=== PATIENT | female | born 1980 | race Caucasian/White ===

== ENCOUNTER → 2016-10-25 | Outpatient (CLI) | payer OTHER ==
[~2016-10-25] MED LIST: NAPROXEN PO; OXAPROZIN600 MG PO; VICODIN 5/500 T1 TAB PO
--- NOTE | ~2016-10-25 | CR151 ---
[facility] A Service of [facility] RADIOLOGY TEXT RESULTS PATIENT: YVONNE BLAKE LOCATION: [facility] : 76 UNIT #: [id number] AGE: [address]: LUIS PELAYO APRN SEX: F ORDER DR: [id number] [facility] [address] [place] [address]. [place], [place] [address] [id number] O MR#: [id number] Acc #: [id number] NAME: YVONNE BLAKE : 1980 SEX: F STUDY DATE/TIME: 10/25/2016 13:29 UNIT: [facility] ROOM: STUDY DESCRIPTION: CR Hip Min 2 Views Rt Attending Physician: Luis Pelayo A.P.R.N. Referring Physician: Luis Pelayo A.P.R.N. Ordering Physician: Luis Pelayo A.P.R.N. Primary Care Physician: Javier Metcalf M.D. MEDICAL IMAGING REPORT This report is preliminary unless electronic signature is present EXAM Right hip, 2 views. DATE OF EXAM 10/25/2016 HISTORY Right hip pain for 6 months. Right hip osteoarthritis, no known injury. FINDINGS AP and oblique examination of the hip shows adequate mineralization of the bones and a normal anatomic relationship of the femoral head with the acetabulum. There are no hypertrophic changes, fractures, dislocation, or joint capsular distension. No radiopaque foreign body is present about the soft tissues of the hip. IMPRESSION Normal right hip. Dictated by... Naman Lal M.D. THIS IS AN ELECTRONICALLY VERIFIED REPORT Naman Lal M.D. at 10/26/2016 8:12 AM STACY/estuardo TD: 10/25/2016 20:17 JOB #: [id number] [facility] A Service [facility] RADIOLOGY TEXT RESULTS PATIENT: YVONNE BLAKE LOCATION: [facility] : 76 UNIT #: [id number] AGE: [address]: LUIS PELAYO APRN SEX: F ORDER DR: MEDICAL IMAGING REPORT Page 1 of 1 COPY
--- NOTE | ~2016-10-25 | CR170 ---
[facility] A Service of [facility] & [facility] RADIOLOGY TEXT RESULTS PATIENT: YVONNE BLAKE LOCATION: [facility] : 76 UNIT #: [id number] AGE: [address]: LUIS PELAYO APRN SEX: F ORDER DR: [id number] [facility] [address] [place], [place] [address] [id number] O MR#: [id number] Acc #: [id number] NAME: YVONNE BLAKE : 1980 SEX: F STUDY DATE/TIME: 10/25/2016 13:30 UNIT: [facility] ROOM: STUDY DESCRIPTION: CR Knee 2 Views Rt Attending Physician: Luis Pelayo A.P.R.N. Referring Physician: Luis Pelayo A.P.R.N. Ordering Physician: Luis Pelayo A.P.R.N. Primary Care Physician: Javier Metcalf M.D. MEDICAL IMAGING REPORT This report is preliminary unless electronic signature is present EXAM Right knee 2 views 10/25/2016 HISTORY Right knee pain for 5 years, osteoarthritis right knee. No known injury. FINDINGS 2 views of the right knee demonstrate no fracture. There is degenerative change with narrowing of the medial and lateral compartments of the knee, more prominent on the lateral side. Osteophytes extend off the femoral condyles, the tibial plateau and the posterior aspect of the patella. The bones are normally mineralized. There is no joint effusion. IMPRESSION Degenerative change about the right knee. No acute abnormality. Dictated by... Naman Lal M.D. THIS IS AN ELECTRONICALLY VERIFIED REPORT Naman Lal M.D. at 10/26/2016 8:12 AM KRT/pcl TD: 10/25/2016 21:30 JOB #: [id number] MEDICAL IMAGING REPORT Page 1 of 1 COPY
--- NOTE | ~2016-10-25 | CR181 ---
[facility] A Service of [facility] & [facility] RADIOLOGY TEXT RESULTS PATIENT: YVONNE BLAKE LOCATION: [facility] : 76 UNIT #: [id number] AGE: [address]: LUIS PELAYO APRN SEX: F ORDER DR: [id number] [facility] [address] [place] [address]. [place], [place] [address] [id number] O MR#: [id number] Acc #: [id number] NAME: YVONNE BLAKE : 1980 SEX: F STUDY DATE/TIME: 10/25/2016 13:29 UNIT: [facility] ROOM: STUDY DESCRIPTION: CR Lumbar Spine 2 or 3 Views Attending Physician: Luis Pelayo A.P.R.N. Referring Physician: Luis Pelayo A.P.R.N. Ordering Physician: Luis Pelayo A.P.R.N. Primary Care Physician: Javeir Metcalf M.D. MEDICAL IMAGING REPORT This report is preliminary unless electronic signature is present EXAM Lumbar spine 3 views, 10/25/2016 HISTORY Low back pain for 5 years and bilateral hip pain for 6 months. No known injury. FINDINGS 3 views of the lumbar spine demonstrate no fracture. The posterior vertebral body line is intact and there is no anterolisthesis or retrolisthesis. There is degenerative change with mild disc space narrowing at L4-5 and L5-S1. Small anterior osteophytes are seen from L3 through L5 and there is mild degenerative change involving the articular facets. IMPRESSION Degenerative change in the lumbar spine. No acute abnormality. Dictated by... Naman Lal M.D. THIS IS AN ELECTRONICALLY VERIFIED REPORT Naman Lal M.D. at 10/26/2016 8:11 AM STACY/ghazal TD: 10/25/2016 20:23 JOB #: [id number] MEDICAL IMAGING REPORT Page 1 of 1 COPY
--- NOTE | ~2016-10-25 | CR150 ---
[facility] A Service of [facility] & [facility] RADIOLOGY TEXT RESULTS PATIENT: YVONNE BLAKE LOCATION: [facility] : 76 UNIT #: [id number] AGE: [address]: LUIS PELAYO APRN SEX: F ORDER DR: [id number] [facility] [address] [place], [place] [address] [id number] O MR#: [id number] Acc #: [id number] NAME: YVONNE BLAKE : 1980 SEX: F STUDY DATE/TIME: 10/25/2016 13:28 UNIT: [facility] ROOM: STUDY DESCRIPTION: CR Hip Min 2 Views Lt Attending Physician: Luis Pelayo A.P.R.N. Referring Physician: Luis Pelayo A.P.R.N. Ordering Physician: Luis Pelayo A.P.R.N. Primary Care Physician: Javier Metcalf M.D. MEDICAL IMAGING REPORT This report is preliminary unless electronic signature is present EXAM Left hip 2 views. DATE OF EXAM 10/25/2016 HISTORY Left hip pain, left hip osteoarthritis. Popping and pain in the left hip for 6 months with no known injury. FINDINGS 2 views of the left hip demonstrate no fracture. There is degenerative change with minimal axial narrowing of the left hip joint. The right hip joint is normally maintained. The bones are normally mineralized. There is no soft tissue abnormality. IMPRESSION Minimal axial narrowing of the left hip joint. No acute abnormality. Dictated by... Naman Lal M.D. THIS IS AN ELECTRONICALLY VERIFIED REPORT Naman Lal M.D. at 10/26/2016 8:12 AM STACY/estuardo TD: 10/25/2016 19:47 JOB #: [id number] MEDICAL IMAGING REPORT Page 1 of 1 COPY
--- NOTE | ~2016-10-25 | CR169 ---
[facility] A Service of [facility] & [facility] RADIOLOGY TEXT RESULTS PATIENT: YVONNE BLAKE LOCATION: [facility] : 76 UNIT #: [id number] AGE: [address]: LUIS PELAYO APRN SEX: F ORDER DR: [id number] [facility] [address]. [place], [place] [address] [id number] O MR#: [id number] Acc #: [id number] NAME: YVONNE BLAKE : 1980 SEX: F STUDY DATE/TIME: 10/25/2016 13:29 UNIT: [facility] ROOM: STUDY DESCRIPTION: CR Knee 2 Views Lt Attending Physician: Luis Pelayo A.P.R.N. Referring Physician: Luis Pelayo A.P.R.N. Ordering Physician: Luis Pelayo A.P.R.N. Primary Care Physician: Javier Metcalf M.D. MEDICAL IMAGING REPORT This report is preliminary unless electronic signature is present EXAM Left knee, 2 views. DATE OF EXAM 10/25/2016 HISTORY Left knee pain for 5 years. Left knee osteoarthritis. No known injury. FINDINGS 2 views of the left knee demonstrate no fracture. There is degenerative change with narrowing of the medial and lateral compartments of the knee and the patellofemoral joint. Large osteophytes are seen extending off the femoral condyles, the tibial plateau and the posterior aspect of the patella. There is no joint effusion. IMPRESSION Fairly extensive degenerative change involving the left knee. No acute abnormality. Dictated by... Naman Lal M.D. THIS IS AN ELECTRONICALLY VERIFIED REPORT Naman Lal M.D. at 10/26/2016 8:11 AM STACY/estuardo TD: 10/25/2016 20:18 JOB #: [id number] MEDICAL IMAGING REPORT Page 1 of 1 COPY
== END | disposition home or self-care (01) ==
LOC: CRAD 12:52
DX: M51.36 Other intervertebral disc degeneration, lumbar region (principal); M16.12 Unilateral primary osteoarthritis, left hip; M16.11 Unilateral primary osteoarthritis, right hip; M17.12 Unilateral primary osteoarthritis, left knee; M17.11 Unilateral primary osteoarthritis, right knee
CPT/HCPCS: 72100; 73502; 73560